=== PATIENT | female | born 1965 | race African-American/Black ===

== ENCOUNTER 2016-12-11 08:51 | Inpatient (IN) | payer OTHER ==
[~2016-12-11] VITALS: Ht 167.6 cm; Wt 124.3 kg
[2016-12-11 08:54] VITALS: BP 198/121
--- NOTE | 2016-12-11 08:57 | NUR ---
PT TAKEN TO BED 8
--- NOTE | 2016-12-11 08:57 | NUR ---
EKG AT BEDSIDE.
--- NOTE | 2016-12-11 08:58 | NUR ---
PATIENT TO BED 8 AT THIS TIME.
--- NOTE | 2016-12-11 08:58 | NUR ---
51/F BIB SELF C/O HEADACHE, L CHEST PAIN RADIATES TO L SHOULDER & L UPPER ARM X15 MINUTES. HX HTN-NO MEDS. DENIES N/V/D; SKIN IS PINK/WARM/DRY; AAOX4 WITH EVEN AND STEADY GAIT; LUNGS CLEAR BL; PT DENIES ANY FEVER, SOB, OR COUGH AT THIS TIME; PATIENT STATES PAIN OF 6/10 AT THIS TIME; VSS; PATIENT POSITIONED FOR COMFORT; HOB ELEVATED; BEDRAILS UP X2; BED DOWN. ER MD MADE AWARE OF PT STATUS.
--- NOTE | 2016-12-11 09:00 | NUR ---
PROVIDED URINE CUP FOR UA
[2016-12-11] MEDS ORDERED: ASPIRIN 325 MG TAB PO ONE (09:10)
[2016-12-11] MEDS ORDERED: NITROGLYCERIN 0.4 MG TAB SL ONE (09:10)
--- NOTE | 2016-12-11 09:15 | NUR ---
LAB AT BEDSIDE.
--- NOTE | 2016-12-11 09:17 | NUR ---
X RAY AT BEDSIDE.
--- NOTE | 2016-12-11 09:20 | NUR ---
ER MD DR HOPKINS EVALUATING PT AT BEDSIDE. FAMILY AT BEDSIDE.
[2016-12-11] MEDS ORDERED: NACL 0.9% 1,000 ML IV ONE (09:25)
[2016-12-11 09:27] LABS: EOSINOPHILS # (AUTO) 0.2 K/uL (0-0.4); HEMOGLOBIN 14.1 g/dL (12.0-16.0); MEAN CORPUSCULAR HGB CONC 32 g/dL (33-37); MONOCYTES # (AUTO) 0.4 K/uL (0.8-1.0); MONOCYTES % (AUTO) 4.5 % (1.7-9.3)
[2016-12-11 09:31] LABS: BASOPHILS # (AUTO) 0.1 K/uL (0.00-0.22); BASOPHILS % (AUTO) 1.3 % (0.0-2.0); EOSINOPHILS % (AUTO) 2.2 % (0.0-4.0); HEMATOCRIT 43.9 % (36-48); LYMPHOCYTES # (AUTO) 2.4 K/uL (2.5-16.5); LYMPHOCYTES % (AUTO) 24.8 % (20.5-51.1); MEAN CORPUSCULAR HEMOGLOBIN 29 pg (27-31); MEAN CORPUSCULAR VOLUME 90 fL (80-94); NEUTROPHILS # (AUTO) 6.4 K/uL (1.8-7.7); NEUTROPHILS % (AUTO) 67.2 % (42.2-75.2); PLATELET COUNT (AUTO) 313 K/uL (140-450); RED CELL DISTRIBUTION WIDTH 12.8 % (11.6-13.7); WHITE BLOOD COUNT (AUTO) 9.5 K/uL (4.8-10.8)
--- NOTE | 2016-12-11 09:33 | NUR ---
INSERTED IV CATH NO 20 RAC. PT TORERATED PROCEDURE WELL. IV PATENT/INTACT. ADMINISTED IVF ORDER.
[2016-12-11 09:42] LABS: ANION GAP 13.9 (8-16); CALCIUM 8.9 mg/dL (8.5-10.1); CARBON DIOXIDE 24.1 mmol/L (21-32)
--- NOTE | 2016-12-11 09:43 | NUR ---
Patient appears to be resting comfortably in bed. BP138/98, PULSE OX 97%. Respirations even and unlabored. MD AWARE. PT STS HEADACHE, L CHEST PAIN 08/19. PT DON'T WANT PAIN MED AT THIS TIME.WILL CONTINUE TO MONITOR.
[2016-12-11 09:48] LABS: ALBUMIN 3.2 g/dL (3.4-5.0); TOTAL BILIRUBIN 0.3 mg/dL (0.0-1.0); TOTAL PROTEIN, SERUM 7.4 g/dL (6.4-8.2)
--- NOTE | 2016-12-11 10:25 | NUR ---
PT AMB TO RESTROOM. URINE SENT TO LAB.
[2016-12-11 10:37] LABS: BILIRUBIN,URINE NEGATIVE (NEGATIVE); BLOOD, URINE NEGATIVE (NEGATIVE); COLOR,URINE YELLOW (YELLOW); LEUKOCYTE ESTERASE ,URINE NEGATIVE (NEGATIVE); NITRITE, URINE NEGATIVE (NEGATIVE); PROTEIN,URINE 1+ (NEGATIVE); UGLUCOSE NEGATIVE (NEGATIVE); UROBILINOGEN,URINE 0.2 EU/dL (0.2 - 1)
[2016-12-11 10:54] LABS: APPEARANCE,URINE SLIGHTLY HAZY (CLEAR)
[2016-12-11 10:56] LABS: BACTERIA,URINE 1+ /HPF (None Seen); RBC,URINE NONE SEEN /HPF (0-5); URINE AMORPHOUS URATE 1+ /HPF (None Seen); WBC,URINE 0-5 (RARE) /HPF (0-5)
[2016-12-11] MEDS: NACL 0.9% 1,000 ML IV SCH (11:17)
--- NOTE | 2016-12-11 11:18 | NUR ---
Patient appears to be resting comfortably in bed. BP151/82, PULSE OX 98%. Respirations even and unlabored. MD AWARE. PT DENIES HEADACHE, L CHEST PAIN 0/10 AT THIS TIME.WILL CONTINUE TO MONITOR.
[2016-12-11] MEDS ORDERED: NITROGLYCERIN 0.4 MG TAB SL PRN ×2 (11:20→11:40)
[2016-12-11] MEDS ORDERED: ONDANSETRON 4 MG/2 ML VIAL IVP PRN (11:20)
--- NOTE | 2016-12-11 11:43 | NUR ---
GAVE REPORT TO EYAL MARTINEZ.Patient will be admitted to care of DR ANGELO. Admited to TELE. Will go to room 123B. Belongings list completed. Report to EYAL MARTINEZ.
[2016-12-11 11:56] LABS: LACTIC ACID 1.2 mmol/L (0.4-2.0)
[2016-12-11 12:00] VITALS: BP 163/98
--- NOTE | 2016-12-11 12:00 | NUR ---
RECEIVED PT ON UNIT VIA ALFIE, PT IS A/OX4, AMBULATORY, IV IS ON THE RT AC, PATENT, INTACT, FLUSHING WELL, SKIN IS INTACT, NO S/S OF RESPIRATORY DISTRESS OR DISCOMFORT NOTED, PT DENIED ANY CHEST PAIN AT THIS TIME, DISCUSSED PLAN OF CARE WITH PT, PT VERBALIZED UNDERSTANDING, ORIENTED PT TO ROOM, SAFETY/FALL PRECAUTIONS ARE IN PLACE, CALL LIGHT IS WITHIN REACH, DR. STRANGE IN PATIENT'S ROOM SPEAKING WITH PT, WILL CONTINUE TO MONITOR.
[2016-12-11 12:13] LABS: PARTIAL THROMBOPLASTIN TIME 26.1 secs (22-35.6)
[2016-12-11 12:20] LABS: AMPHETAMINE, URINE NEG. ng/ml (NEG <=1000); BARBITURATE, URINE NEG. ng/ml (NEG <=200); BENZODIAZEPINE, URINE NEG. ng/mL (NEG <=200); CANNABINOID, URINE NEG. ng/mL (NEG <=50); COCAINE, URINE NEG. ng/mL (NEG <=300); OPIATE, URINE NEG. ng/mL (NEG <=2000); PHENCYCLIDINE SCREEN,URINE NEG. ng/mL (NEG <=25)
[2016-12-11 12:32] LABS: CHOL/HDL RATIO 2.5 (1-4.5); FREE T4 (FREE THYROXINE) 1.15 ng/dL (0.76-1.46); MAGNESIUM 1.9 mg/dL (1.8-2.4); PHOSPHORUS 3.2 mg/dL (2.5-4.9); THYROID STIMULATING HORMONE 1.62 uIU/mL (0.34-3.74)
[2016-12-11] MEDS ORDERED: LORazepam 0.5 MG TAB PO PRN ×2 (12:55→14:00)
--- NOTE | 2016-12-11 14:05 | NUR ---
PT IS RESTING IN BED IN SUPINE POSITION TALKING ON HER CELL PHONE, CALL LIGHT IS WITHIN REACH.
[2016-12-11] MEDS ORDERED: SERTRALINE 50 MG TAB PO SCH (14:19)
[2016-12-11 16:00] VITALS: BP 161/98
[2016-12-11] MEDS ORDERED: LISINOPRIL 5 MG TAB PO SCH (16:10)
--- NOTE | 2016-12-11 16:10 | NUR ---
PT IS SLEEPING IN BED BUT EASILY AWAKEN, CALL LIGHT IS WITHIN REACH.
[2016-12-11] MEDS: ACETAMINOPHEN 325 MG TAB PO PRN (16:48)
--- NOTE | 2016-12-11 16:48 | NUR ---
PATIENT COMPLAINED OF A HEADACHE, WILL MEDICATE WITH PRN PAIN MEDICATION AT THIS TIME.
--- NOTE | 2016-12-11 17:30 | NUR ---
PT IS RESTING IN BED, FAMILY IS AT PATIENT'S BEDSIDE, CALL LIGHT WITHIN REACH.
--- NOTE | 2016-12-11 19:21 | NUR ---
ENDORSED PT TO EYAL VILLAFANA. FOR CONTINUITY OF CARE. PT STABLE AT THIS TIME.
--- NOTE | 2016-12-11 19:30 | NUR ---
RECEIVED REPORT FROM DAY RN AT BEDSIDE, PATIENT IS AAOX4 ON ROOM AIR, NO SOB OR SIGN OF DISTRESS, PT DENIES PAIN AT THIS TIME, IV TO RIGHT AC PATENT AND INTACT, SKIN INTACT, DISCUSSED PLAN OF CARE WITH PATIENT, PT VERBALIZED UNDERSTANDING, SAFETY MEASURES CHECKED, CALL LIGHT WITHIN REACH. WILL CONTINUE TO MONITOR.
[2016-12-11 20:00] VITALS: BP 158/98
[2016-12-11] MEDS: ATORVASTATIN 20 MG TAB PO SCH (20:01)
[2016-12-11] MEDS: DOCUSATE SODIUM 100 MG GELCAP PO SCH (20:02)
[2016-12-11] MEDS: METOPROLOL 25 MG TAB PO SCH (20:02)
--- NOTE | 2016-12-11 20:07 | NUR ---
PM MEDS ADMINISTERED, PT TOLERATED WELL, PT RESTING IN BED, NO SIGN OF DISTRESS, CALL LIGHT WITHIN REACH WILL CONTINUE TO MONITOR.
[2016-12-11] MEDS ORDERED: ATORVASTATIN 20 MG TAB PO SCH ×2 (21:00)
[2016-12-11] MEDS ORDERED: METOPROLOL 25 MG TAB PO SCH (21:00)
[2016-12-12] VITALS: BP 187/111
--- NOTE | 2016-12-12 00:24 | NUR ---
BP ELEVATED TO 187/111, HR 85. NOTIFIED DR RESENDIZ. NO ORDERS GIVEN, PHYSICIAN TO PUT IN ORDERS.
[2016-12-12] MEDS ORDERED: METOPROLOL 25 MG TAB PO SCH (00:30)
[2016-12-12] MEDS ORDERED: LISINOPRIL 20 MG TAB PO SCH (00:30)
[2016-12-12] MEDS: ACETAMINOPHEN 325 MG TAB PO PRN (01:37)
--- NOTE | 2016-12-12 02:00 | NUR ---
PT SLEEPING, NO SIGN OF DISTRESS, CALL LIGHT WITHIN REACH. WILL CONTINUE TO MONITOR
[2016-12-12 04:00] VITALS: BP 147/95
--- NOTE | 2016-12-12 04:30 | NUR ---
VITAL SIGNS STABLE, NO SIGN OF DISTRESS, CALL LIGHT WITHIN REACH. WILL CONTINUE TO MONITOR
--- NOTE | 2016-12-12 07:23 | NUR ---
ENDORSED PATIENT TO DAY RN AT BEDSIDE, PATIENT IN STABLE CONDITION
--- NOTE | 2016-12-12 07:30 | NUR ---
RECEIVED REPORT FROM EYAL VILLAFANA. PT IS ALERT AND ORIENTED X4. VERBALLY RESPONSIVE. ABLE TO FOLLOW COMMAND. NO C/O PAIN OR DISCOMFORT NOTED. BILATERAL PERRLA NOTED IN EYES. ON RA SATURATING AT 96%. SR ON MONITOR. ABLE TO MOVE ALL EXTREMITIES. ABLE TO AMBULATE INDEPENDENTLY. ABLE TO VOID FREELY. R AC 20 GAUGE NOTED. INTACT AND PATENT. SKIN INTACT. SAFETY PRECAUTION MAINTAINED. BED AT LOWEST SETTING. CALL LIGHT WITHIN REACH. WILL CONTINUE TO MONITOR.
[2016-12-12 07:40] LABS: BASOPHILS # (AUTO) 0.2 K/uL (0.00-0.22); BASOPHILS % (AUTO) 2.3 % (0.0-2.0); EOSINOPHILS # (AUTO) 0.1 K/uL (0-0.4); EOSINOPHILS % (AUTO) 1.7 % (0.0-4.0); HEMATOCRIT 40.9 % (36-48); HEMOGLOBIN 13.6 g/dL (12.0-16.0); LYMPHOCYTES # (AUTO) 2.2 K/uL (2.5-16.5); LYMPHOCYTES % (AUTO) 26.5 % (20.5-51.1); MEAN CORPUSCULAR HEMOGLOBIN 30 pg (27-31); MEAN CORPUSCULAR HGB CONC 33 g/dL (33-37); MEAN CORPUSCULAR VOLUME 90 fL (80-94); MONOCYTES # (AUTO) 0.6 K/uL (0.8-1.0); MONOCYTES % (AUTO) 7.3 % (1.7-9.3); NEUTROPHILS # (AUTO) 5.1 K/uL (1.8-7.7); NEUTROPHILS % (AUTO) 62.2 % (42.2-75.2); PLATELET COUNT (AUTO) 271 K/uL (140-450); RED BLOOD CELL COUNT(AUTO) 4.55 MIL/uL (4.20-5.40); RED CELL DISTRIBUTION WIDTH 12.9 % (11.6-13.7); WHITE BLOOD COUNT (AUTO) 8.2 K/uL (4.8-10.8)
[2016-12-12 07:48] LABS: ANION GAP 9.7 (8-16); CALCIUM 8.8 mg/dL (8.5-10.1); CARBON DIOXIDE 27.6 mmol/L (21-32); CREATININE 1.2 mg/dL (0.6-1.3); POTASSIUM 4.3 mmol/L (3.5-5.1)
[2016-12-12 07:52] LABS: MAGNESIUM 2.1 mg/dL (1.8-2.4); PHOSPHORUS 4.1 mg/dL (2.5-4.9)
[2016-12-12 08:00] VITALS: BP 131/88
[2016-12-12] MEDS: DOCUSATE SODIUM 100 MG GELCAP PO SCH ×2 (08:23→21:00)
[2016-12-12] MEDS: LISINOPRIL 5 MG TAB PO SCH (08:24)
[2016-12-12] MEDS: METOPROLOL 25 MG TAB PO SCH ×2 (08:24→21:03)
[2016-12-12] MEDS: PANTOPRAZOLE 40 MG TABEC PO SCH (08:24)
[2016-12-12] MEDS: ASPIRIN 81 MG TAB.CHEW PO SCH (08:24)
--- NOTE | 2016-12-12 08:34 | NUR ---
MEDICATION ADMINISTERED ORDERED. TOLERATED WELL. BP 131/88, P 78. WILL CONTINUE TO MONITOR.
[2016-12-12] MEDS ORDERED: ASPIRIN 81 MG TAB.CHEW PO SCH (09:00)
[2016-12-12] MEDS ORDERED: SERTRALINE 50 MG TAB PO SCH (09:00)
[2016-12-12] MEDS ORDERED: LISINOPRIL 5 MG TAB PO SCH ×2 (09:00)
[2016-12-12] MEDS ORDERED: PANTOPRAZOLE 40 MG INJ VIAL IVP SCH (09:00)
--- NOTE | 2016-12-12 09:02 | NUR ---
PATIENT HAS BEEN SCREENED AND CATEGORIZED HIGH NUTRITION RISK. PATIENT WILL BE SEEN WITHIN 1-2 DAYS OF ADMISSION. 12/11/16-12/12/[address]
--- NOTE | 2016-12-12 10:00 | NUR ---
PT RESTING COMFORTABLY IN BED. AWAKE AND ALERT. NO C/O PAIN OR DISCOMFORT. WILL CONTINUE TO MONITOR.
--- NOTE | 2016-12-12 10:58 | NUR ---
12/12/16 RD INITIAL ASSESSMENT COMPLETED PLEASE REFER TO NUTRITION ASSESSMENT UNDER CARE ACTIVITY FOR ESTIMATED NUTRITIONAL NEEDS. 1. CONTINUE CARDIAC DIET 2. PROVIDE NUTRITION THERAPY EDUCATION NEEDED NICK BOLDEN RD
[2016-12-12 12:00] VITALS: BP 136/86
--- NOTE | 2016-12-12 12:00 | NUR ---
SWELLING AND TENDERNESS NOTED ON LEFT AC IV SITE. IV D/OLGA. CANNULA INTACT. ARM RAISED ON PILLOW. NEW IV PLACED ON LEFT FOREARM
--- NOTE | 2016-12-12 12:20 | NUR ---
CM NOTE INITIAL REVIEW FAXED TO [facility] / FAX# [phone], ATTN: LUDIVINA #[phone] X [phone]
[2016-12-12] MEDS: NACL 0.9% 1,000 ML IV SCH (13:00)
--- NOTE | 2016-12-12 14:00 | NUR ---
PT RESTING COMFORTABLY IN ROOM. NO S/SX OF ACUTE DISTRESS NOTED. WILL CONTINUE TO MONITOR.
[2016-12-12 16:00] VITALS: BP 133/84
--- NOTE | 2016-12-12 16:30 | NUR ---
PT RESTING COMFORTABLY IN BED. NO S/SX OF ACUTE DISTRESS NOTED. WILL CONTINUE TO MONITOR.
--- NOTE | 2016-12-12 19:30 | NUR ---
RECEIVED REPORT FROM DAY RN AT BEDSIDE, PATIENT IS AAOX4 ON ROOM AIR, NO SOB OR SIGN OF DISTRESS AT THIS TIME, IV TO LEFT FA PATENT AND INTACT, SKIN INTACT WITH RIGHT ARM SWOLLEN FROM PREVIOUS INFILTRATED IV. PT INSTRUCTED TO KEEP ARM ELEVATED, PT DENIES PAIN AT THIS TIME. DISCUSSED PLAN OF CARE WITH PATIENT, PT VERBALIZED UNDERSTANDING, CALL LIGHT WITHIN REACH. WILL CONTINUE OT MONITOR
--- NOTE | 2016-12-12 19:33 | NUR ---
REPORT GIVEN TO EYAL VILLAFANA. PT IS STABLE.
[2016-12-12 20:00] VITALS: BP 151/100
[2016-12-12] MEDS: ATORVASTATIN 20 MG TAB PO SCH (21:03)
--- NOTE | 2016-12-12 21:26 | NUR ---
PATIENT TOOK MEDICATIONS AND TOLERATED WELL. PATIENT REFUSED COLACE BECAUSE SHE SAYS HER BM'S ARE FINE, AND SHE REQUESTED THAT SCD'S BE REMOVED FROM ROOM. CALL LIGHT WITHIN REACH.
[2016-12-13] VITALS: BP 131/93
--- NOTE | 2016-12-13 | NUR ---
VITAL SIGNS STABLE, NO SOB OR SIGN OF DISTRESS AT THIS TIME, CALL LIGHT WITHIN REACH. WILL CONTINUE TO MONITOR
--- NOTE | 2016-12-13 02:40 | NUR ---
PT SLEEPING, NO SIGN OF DISTRESS, CALL LIGHT WITHIN REACH. WILL CONTINUE OT MONITOR
[2016-12-13 04:00] VITALS: BP 134/97
--- NOTE | 2016-12-13 04:00 | NUR ---
VITAL SIGNS STABLE, NO SOB OR SIGN OF DISTRESS, CALL LIGHT WITHIN REACH. WILL CONTINUE TO MONITOR.
[2016-12-13 06:30] LABS: BASOPHILS # (AUTO) 0.1 K/uL (0.00-0.22); BASOPHILS % (AUTO) 0.9 % (0.0-2.0); EOSINOPHILS # (AUTO) 0.2 K/uL (0-0.4); EOSINOPHILS % (AUTO) 2.2 % (0.0-4.0); HEMATOCRIT 40.7 % (36-48); HEMOGLOBIN 13.4 g/dL (12.0-16.0); LYMPHOCYTES # (AUTO) 2.3 K/uL (2.5-16.5); LYMPHOCYTES % (AUTO) 25.1 % (20.5-51.1); MEAN CORPUSCULAR HEMOGLOBIN 30 pg (27-31); MEAN CORPUSCULAR HGB CONC 33 g/dL (33-37); MEAN CORPUSCULAR VOLUME 90 fL (80-94); MONOCYTES # (AUTO) 0.5 K/uL (0.8-1.0); MONOCYTES % (AUTO) 5.9 % (1.7-9.3); NEUTROPHILS % (AUTO) 65.9 % (42.2-75.2); PLATELET COUNT (AUTO) 267 K/uL (140-450); RED BLOOD CELL COUNT(AUTO) 4.53 MIL/uL (4.20-5.40); RED CELL DISTRIBUTION WIDTH 12.8 % (11.6-13.7); WHITE BLOOD COUNT (AUTO) 9.1 K/uL (4.8-10.8)
[2016-12-13 06:40] LABS: ANION GAP 10.3 (8-16); CALCIUM 8.5 mg/dL (8.5-10.1); CARBON DIOXIDE 25.8 mmol/L (21-32); CREATININE 1.2 mg/dL (0.6-1.3); POTASSIUM 4.1 mmol/L (3.5-5.1)
--- NOTE | 2016-12-13 07:38 | NUR ---
ENDORSED PATIENT TO DAY RN AT BEDSIDE, PT IN STABLE CONDITION
--- NOTE | 2016-12-13 07:39 | NUR ---
RECEIVED REPORT FROM NIGHT RN AT PT BEDSIDE. PT RESTING IN BED. SLEEPING, EASILY AWAKENS. PATIENT DENIES CHEST PAIN. NO S/S OF ACUTE DISTRESS. IV SITE PATENT AND INTACT. CALL LIGHT WITHIN REACH.
[2016-12-13 08:00] VITALS: BP 123/80
[2016-12-13] MEDS: LISINOPRIL 5 MG TAB PO SCH (08:50)
[2016-12-13] MEDS: ASPIRIN 81 MG TAB.CHEW PO SCH (08:51)
[2016-12-13] MEDS: DOCUSATE SODIUM 100 MG GELCAP PO SCH (08:51)
[2016-12-13] MEDS: METOPROLOL 25 MG TAB PO SCH (08:51)
[2016-12-13] MEDS: PANTOPRAZOLE 40 MG TABEC PO SCH (08:51)
--- NOTE | 2016-12-13 09:10 | NUR ---
ROUNDED WITH PCP AT PT BEDSIDE. PATIENT TO BE DISCHARGED HOME TODAY WITH FOLLOW APPOINTMENT WITH JACKSCREW MAN, PATIENT VERBALIZED UNDERSTANDING.
[2016-12-13] MEDS ORDERED: METO25TA PO ×2 (09:41→15:46)
[2016-12-13] MEDS ORDERED: ORE25 PO ×2 (09:42→15:46)
--- NOTE | 2016-12-13 11:25 | NUR ---
PATIENT DISCHARGE INSTRUCTIONS GIVEN WITH FOLLOW UP TEACHING, VERBALIZED UNDERSTANDING. IV REMOVED, CANULA INTACT. PATIENT IS ALERT AND ORIENTED. NO S/S OF ACUTE DISTRESS. AMBULATORY. PATIENT TO TAKE SELF HOME. ALL QUESTIONS AND NEEDS MET.
--- NOTE | 2016-12-13 11:44 | NUR ---
FAXED CONCURRENT REVIEW TO [facility] [phone] PHONE [phone]
--- NOTE | 2016-12-13 11:45 | NUR ---
PATIENT WHEELED TO FRONT LOBBY IN STABLE CONDITION. AMBULATORY WITH STEADY GAIT. NO S/S OF DISTRESS. DISCHARGE PRESCRIPTION TEACHING GIVEN, VERBALIZED UNDERSTANDING.
== END 2016-12-13 11:45 | disposition home or self-care (01) | DRG 243 ==
LOC: MED 08:51 → MTU 11:23
PROVIDERS: ADMIT Family Medicine; ATTEND Family Medicine
DX: K21.9 Gastro-esophageal reflux disease without esophagitis (principal); N17.0 Acute kidney failure with tubular necrosis; E43 Unspecified severe protein-calorie malnutrition; I16.0 Hypertensive urgency; F43.23 Adjustment disorder with mixed anxiety and depressed mood; E66.01 Morbid (severe) obesity due to excess calories; E87.8 Other disorders of electrolyte and fluid balance, not elsewhere classified; R73.03 Prediabetes; I25.10 Atherosclerotic heart disease of native coronary artery without angina pectoris; I11.9 Hypertensive heart disease without heart failure; Z88.5 Allergy status to narcotic agent; Z82.3 Family history of stroke; Z83.3 Family history of diabetes mellitus; Z82.49 Family history of ischemic heart disease and other diseases of the circulatory system; Z72.89 Other problems related to lifestyle; Z68.41 Body mass index [BMI] 40.0-44.9, adult
CPT/HCPCS: 36415; 71010; 80048; 80053; 80305; 81001; 81025; 82140; 82150; 82553; 83036; 83605; 83690; 83735; 83880; 84100; 84439; 84443; 84484; 85025; 85379; 85610; 85730; 87081; 93005; 93970; 99285; J7030; Q0092

== ENCOUNTER 2020-03-09 18:45 | Emergency (ER) | payer OTHER ==
[~2020-03-09] VITALS: Ht 167.6 cm; Wt 113.4 kg
[~2020-03-09 18:45] MED LIST: METO25TA PO; ORE25 PO
--- NOTE | 2020-03-09 18:49 | NUR ---
PT TAKEN TO BED 11.
[2020-03-09 18:53] VITALS: BP 187/101
--- NOTE | 2020-03-09 19:15 | NUR ---
RECEIVED REPORT FROM KAREL BIRCH FOR CONTINUITY OF CARE. Addendum: 03/09/20 at 2024 by SHE RECEIVED REPORT FROM ARIAN BIRCH FOR CONTINUITY OF CARE.
--- NOTE | 2020-03-09 19:20 | NUR ---
54 Y/O FEMALE BIB SELF WITH C/O NON-RADIATING STERNAL CHEST PAIN 3/10 AND ELEVATED BP. PER PT THE PAIN BEGAN THIS EVENING AROUND 2 TO 3 PM WHILE AT REST. SHE VERBALIZED TAKING NO OTC MEDS FOR THE PAIN. STATES SHE HAD NAUSEA AND VOMITING PRIOR TO ED VISIT. CURRENTLY DENIES HAVING ANY N/V/D. SHE ALSO REPORTS TAKING LISINOPRIL AND METOPROLOL FOR HTN. MEDHX: HTN ALLX: CODEINE
--- NOTE | 2020-03-09 19:24 | NUR ---
ERMD AT BEDSIDE.
--- NOTE | 2020-03-09 19:27 | NUR ---
X-RAY AT BEDSIDE.
[2020-03-09] MEDS ORDERED: LABETALOL 100 MG/20 ML VIAL IVP ONE (19:30)
--- NOTE | 2020-03-09 19:30 | NUR ---
UA COLLECTED AND HANDED TO LAB.
[2020-03-09 19:49] LABS: BASOPHILS # (AUTO) 0.1 K/uL (0.00-0.22); BASOPHILS % (AUTO) 0.9 % (0.0-2.0); EOSINOPHILS % (AUTO) 0.2 % (0.0-4.0); HEMATOCRIT 41.9 % (36-48); HEMOGLOBIN 14.2 g/dL (12.0-16.0); LYMPHOCYTES # (AUTO) 0.8 K/uL (2.5-16.5); LYMPHOCYTES % (AUTO) 8.1 % (20.5-51.1); MEAN CORPUSCULAR HEMOGLOBIN 31 pg (27-31); MEAN CORPUSCULAR HGB CONC 34 g/dL (33-37); MEAN CORPUSCULAR VOLUME 90.4 fL (80-94); MONOCYTES # (AUTO) 0.4 K/uL (0.8-1.0); NEUTROPHILS # (AUTO) 8.4 K/uL (1.8-7.7); NEUTROPHILS % (AUTO) 86.8 % (42.2-75.2); PLATELET COUNT (AUTO) 368 K/uL (140-450); RED BLOOD CELL COUNT(AUTO) 4.64 MIL/uL (4.20-5.40); RED CELL DISTRIBUTION WIDTH 14.4 % (11.6-13.7); WHITE BLOOD COUNT (AUTO) 9.6 K/uL (4.8-10.8)
[2020-03-09 19:49] LABS: APPEARANCE,URINE CLEAR (CLEAR); BILIRUBIN,URINE NEGATIVE (NEGATIVE); BLOOD, URINE 1+ (NEGATIVE); COLOR,URINE YELLOW (YELLOW); LEUKOCYTE ESTERASE ,URINE NEGATIVE (NEGATIVE); NITRITE, URINE NEGATIVE (NEGATIVE); PH,URINE 7.5 (5.0-9.0); UGLUCOSE NEGATIVE (NEGATIVE)
[2020-03-09 19:55] LABS: WBC,URINE 0-5 /HPF (0-5)
[2020-03-09 20:08] LABS: ALBUMIN 3.9 g/dL (3.4-5.0); ANION GAP 19.3 (8-16); CARBON DIOXIDE 25.9 mmol/L (21-32); CREATININE 1.6 mg/dL (0.6-1.3); POTASSIUM 4.2 mmol/L (3.5-5.1); TOTAL BILIRUBIN 0.5 mg/dL (0.0-1.0)
--- NOTE | 2020-03-09 20:25 | NUR ---
KAIDEN STREETER AT BEDSIDE.
--- NOTE | 2020-03-09 20:40 | NUR ---
Patient appears to be resting comfortably in bed. Vital Signs within normal limits. Respirations even and unlabored. 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
[2020-03-09 21:17] VITALS: BP 156/83
--- NOTE | 2020-03-09 21:17 | NUR ---
Patient discharged with v/s stable. Written and verbal after care instructions given and explained. Patient verbalized understanding. Ambulatory with steady gait. All questions addressed prior to discharge. Advised to follow up with PMD. Verbalized a decrease in pain level from 3/10 to 0/10.
--- NOTE | 2020-03-09 21:17 | NUR ---
IV removed, catheter intact and site benign. Applied folded 4x4 gauze and tape to stop bleeding.
== END 2020-03-09 21:17 | disposition home or self-care (01) ==
LOC: MED 18:45
DX: I10 Essential (primary) hypertension (principal); Z88.5 Allergy status to narcotic agent; Z98.890 Other specified postprocedural states
CPT/HCPCS: 36415; 71045; 80053; 81001; 83880; 84484; 85025; 93005; 96374; 99291; J3490; Q0092; 99285

== ENCOUNTER 2021-01-04 02:30 | Emergency (ER) | payer OTHER ==
[~2021-01-04] VITALS: Ht 165.1 cm; Wt 129.7 kg
[~2021-01-04 02:30] MED LIST changes: +HYDR-4004 PO; -ORE25 PO
[2021-01-04 02:46] VITALS: BP 144/97
--- NOTE | 2021-01-04 02:56 | NUR ---
PT TAKEN TO BED 12
--- NOTE | 2021-01-04 03:00 | NUR ---
PATIENT BIB SELF FOR C/O MID TO LOW BACK PAIN RADIATING TO LOWER ABDOMEN. PER PATIENT HAS HAD THIS PAIN INTERMITTENT X 4 MNTHS BUT THE LAST 4 DAYS HAS "GOTTEN WORSE." PATIENT STATES THAT PAIN IS PROVKOED BY WALKING. PATIENT DENIES ANY URINARY BURNING, PAIN, OR FRQUANCY/URGENCY. PATIENT DENIES HEMATURIA. PATIENT DENIES N/V/D. PATIENT VSS. MEDHX- HTN ALLX- CODEINE
--- NOTE | 2021-01-04 03:00 | NUR ---
ERMD AT BEDSIDE FOR MEDICAL EVALUATION.
--- NOTE | 2021-01-04 03:14 | NUR ---
LAB AT BEDSIDE.
[2021-01-04 03:22] LABS: APPEARANCE,URINE SL CLOUDY (CLEAR); BILIRUBIN,URINE NEGATIVE (NEGATIVE); BLOOD, URINE NEGATIVE (NEGATIVE); COLOR,URINE YELLOW (YELLOW); LEUKOCYTE ESTERASE ,URINE NEGATIVE (NEGATIVE); NITRITE, URINE NEGATIVE (NEGATIVE); UGLUCOSE NEGATIVE (NEGATIVE)
[2021-01-04 03:22] LABS: BASOPHILS # (AUTO) 0.1 K/uL (0.00-0.22); BASOPHILS % (AUTO) 0.5 % (0.0-2.0); EOSINOPHILS # (AUTO) 0.1 K/uL (0-0.4); EOSINOPHILS % (AUTO) 1.2 % (0.0-4.0); HEMATOCRIT 42.2 % (36-48); LYMPHOCYTES # (AUTO) 3.3 K/uL (2.5-16.5); LYMPHOCYTES % (AUTO) 27.6 % (20.5-51.1); MEAN CORPUSCULAR HEMOGLOBIN 30 pg (27-31); MEAN CORPUSCULAR HGB CONC 33 g/dL (33-37); MEAN CORPUSCULAR VOLUME 88.8 fL (80-94); MONOCYTES # (AUTO) 0.9 K/uL (0.8-1.0); MONOCYTES % (AUTO) 7.6 % (1.7-9.3); NEUTROPHILS # (AUTO) 7.6 K/uL (1.8-7.7); NEUTROPHILS % (AUTO) 63.1 % (42.2-75.2); PLATELET COUNT (AUTO) 352 K/uL (140-450); RED BLOOD CELL COUNT(AUTO) 4.75 MIL/uL (4.20-5.40); RED CELL DISTRIBUTION WIDTH 13.6 % (11.6-13.7)
[2021-01-04 03:59] LABS: ALBUMIN 3.6 g/dL (3.4-5.0); ANION GAP 14.7 (8-16); CARBON DIOXIDE 26.7 mmol/L (21-32); CREATININE 1.8 mg/dL (0.6-1.3); POTASSIUM 3.4 mmol/L (3.5-5.1); TOTAL BILIRUBIN 0.6 mg/dL (0.0-1.0)
--- NOTE | 2021-01-04 04:34 | NUR ---
PATIENT TAKEN TO CT VIA W/C.
[2021-01-04 05:00] VITALS: BP 152/84
[2021-01-04] MEDS ORDERED: IBUP-2213 PO (06:00)
[2021-01-04] MEDS ORDERED: DOCU-299 PO (06:00)
[2021-01-04] MEDS ORDERED: ONDA-24 PO (06:00)
[2021-01-04] MEDS ORDERED: ACET-8386 PO (06:00)
--- NOTE | 2021-01-04 06:33 | NUR ---
Patient discharged with v/s stable. Written and verbal after care instructions given and explained. Patient alert, oriented and verbalized understanding of instructions. Ambulatory with steady gait. All questions addressed prior to discharge. ID band removed. Patient advised to follow up with PMD. Rx of MOTRIN, COLACE, MOTRIN, AND NORCO given. Patient educated on indication of medication including possible reaction and side effects. Opportunity to ask questions provided and answered.
== END 2021-01-04 06:33 | disposition home or self-care (01) ==
LOC: MED 02:30
DX: R10.9 Unspecified abdominal pain (principal); M54.9 Dorsalgia, unspecified; I10 Essential (primary) hypertension; Z88.5 Allergy status to narcotic agent; Z79.899 Other long term (current) drug therapy
CPT/HCPCS: 36415; 80053; 81003; 83690; 85025; 99284

== ENCOUNTER 2022-01-06 17:22 | Emergency (ER) | payer OTHER ==
[~2022-01-06] VITALS: Ht 167.6 cm; Wt 128.8 kg
[~2022-01-06 17:22] MED LIST changes: +ACET-8386 PO; +DOCU-299 PO; +IBUP-2213 PO; +ONDA-188 PO
[2022-01-06 17:40] VITALS: BP 121/73
[2022-01-06] MEDS ORDERED: IBUPROFEN 600 MG TAB PO ONE (19:05)
--- NOTE | 2022-01-06 19:07 | NUR ---
PT TAKEN TO XRAY VIA WC
--- NOTE | 2022-01-06 19:19 | NUR ---
PT BACK FROM RAD VIA W/C
--- NOTE | 2022-01-06 19:21 | NUR ---
PT MEDICATED AND SENT BACK TO LOBBY.
[2022-01-06] MEDS ORDERED: NAPR-54 PO (19:47)
== END 2022-01-06 19:56 | disposition home or self-care (01) ==
LOC: MED 17:32
DX: M19.072 Primary osteoarthritis, left ankle and foot (principal); I10 Essential (primary) hypertension; Z88.5 Allergy status to narcotic agent; Z79.899 Other long term (current) drug therapy
CPT/HCPCS: 29515; 73660; 99283

== ENCOUNTER 2022-01-09 08:46 | Emergency (ER) | payer OTHER ==
[~2022-01-09] VITALS: Ht 165.1 cm; Wt 128.4 kg
[~2022-01-09 08:46] MED LIST changes: +NAPR-54 PO
[2022-01-09 09:06] VITALS: BP 138/81
--- NOTE | 2022-01-09 09:15 | NUR ---
PT W/C ASSISTED TO BED 09.
--- NOTE | 2022-01-09 09:34 | NUR ---
56/F PRESENTS TO ED WITH C/O LEFT FOOT PAIN X8 DAYS. PATIENT DENIES RECENT INJURY OR TRAUMA, STATES SHE WAS SEEN HERE FOR SAME SYMPTOMS ON 01/06/22 AND DX WITH OSTEOARTHRITIS AND GIVEN RX OF NAPROSYN. 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 PATIENT W/C ASSISTED UPON ARRIVAL TO ED.
--- NOTE | 2022-01-09 09:51 | NUR ---
GROUND WATER PUMP INSTALLER BEDSIDE
[2022-01-09 10:26] LABS: BASOPHILS # (AUTO) 0.1 K/uL (0.00-0.22); BASOPHILS % (AUTO) 0.7 % (0.0-2.0); EOSINOPHILS # (AUTO) 0.3 K/uL (0-0.4); EOSINOPHILS % (AUTO) 4.5 % (0.0-4.0); HEMATOCRIT 38.6 % (36-48); HEMOGLOBIN 12.8 g/dL (12.0-16.0); LYMPHOCYTES # (AUTO) 1.8 K/uL (2.5-16.5); LYMPHOCYTES % (AUTO) 23.9 % (20.5-51.1); MEAN CORPUSCULAR HEMOGLOBIN 29 pg (27-31); MEAN CORPUSCULAR HGB CONC 33 g/dL (33-37); MEAN CORPUSCULAR VOLUME 87.9 fL (80-94); MONOCYTES # (AUTO) 0.5 K/uL (0.8-1.0); NEUTROPHILS # (AUTO) 4.9 K/uL (1.8-7.7); NEUTROPHILS % (AUTO) 63.9 % (42.2-75.2); PLATELET COUNT (AUTO) 341 K/uL (140-450); RED BLOOD CELL COUNT(AUTO) 4.39 MIL/uL (4.20-5.40); RED CELL DISTRIBUTION WIDTH 15.6 % (11.6-13.7); WHITE BLOOD COUNT (AUTO) 7.7 K/uL (4.8-10.8)
[2022-01-09 10:44] LABS: CARBON DIOXIDE 25.1 mmol/L (21-32); CREATININE 1.6 mg/dL (0.6-1.3); POTASSIUM 4.1 mmol/L (3.5-5.1)
[2022-01-09] MEDS ORDERED: ACET-8386 PO (12:30)
[2022-01-09 12:45] VITALS: BP 98/63
--- NOTE | 2022-01-09 12:45 | NUR ---
Patient discharged with v/s stable. Written and verbal after care instructions ABOUT LOW-PURINE EATING PLAN given and explained. Patient alert, oriented and verbalized understanding of instructions. Wheel Chair Assisted with to car. All questions addressed prior to discharge. ID band removed. Patient advised to follow up with PMD. Rx of NORCO 5-325 given. Patient educated on indication of medication including possible reaction and side effects. Opportunity to ask questions provided and answered.
== END 2022-01-09 12:45 | disposition home or self-care (01) ==
LOC: MED 08:46
DX: M10.072 Idiopathic gout, left ankle and foot (principal); I12.9 Hypertensive chronic kidney disease with stage 1 through stage 4 chronic kidney disease, or unspecified chronic kidney disease; N18.9 Chronic kidney disease, unspecified; E78.5 Hyperlipidemia, unspecified; Z79.899 Other long term (current) drug therapy; Z88.5 Allergy status to narcotic agent
CPT/HCPCS: 36415; 73660; 80048; 82948; 84550; 85025; 99284; Q0092